=== PATIENT | female | born 1990 | race American Indian/Alaskan Native ===

== ENCOUNTER 2016-04-22 21:35 | Emergency (ER) | payer BC ==
--- NOTE | 2016-04-22 22:23 | Emergency Department Report ---
Chief Complaint: Headache Stated Complaint: HIGH BP/HEADACHE Time Seen by Provider: 04/22/16 22:18 - HPI History of Present Illness: Patient is 26-year-old female who presents to ED complaining of chest pain, headache and dizziness 1 week. Patient states headache began about 2 weeks ago. Patient describes headache as throbbing in nature, generalized, nonradiating, associated with blurry vision bilaterally. Patient also states dizziness associated with pressure. Patient states she is not on any medication. Patient describes chest pain made to the left region, nonradiating, rates it 6 out of 10 intensity. Patient denies fevers/chills/nausea/vomiting/abdominal pain - ROS Review of Systems: As noted in HPI - Exam Vital Signs: Vital Signs 04/22/16 21:41 Temperature 98.2 F Pulse Rate 112 H Respiratory 18 Rate Blood Pressure 155/100 O2 Sat by Pulse 100 Oximetry Physical Exam: GENERAL: Alert and oriented x3, no apparent distress, Normal Gait, atraumatic. HEAD: Head is normocephalic and a-traumatic. EYES: Extra ocular muscles are intact. Pupils are equal, round, and reactive to light and accommodation. NECK: Supple. Non edematous, No carotid bruits. No lymphadenopathy or thyromegaly. LUNGS: Symetrical with respiration, No wheezing, no rales or crackles, CTAB. HEART: S1, S2 present, regular rate and rhythm without murmur, no rubs, no gallops. ABDOMEN: No organomegaly was noted,Positive bowel sounds, soft, and non- distended. . Nontender to palpation on all Quadrants, NO CVA tenderness. SKIN: Warm and dry, No lesions, No ulceration or induration present. MSE screening note: Focused history and physical exam performed. Due to findings the following was ordered: ED Medical Decision Making - Medical Decision Making Chest pain protocol ordered. Vital signs stable mildly elevated blood pressure. Patient is in no respiratory acute distress. To be seen by ED physician and the main side.. ED Disposition for MSE Condition: Stable
[2016-04-22 23:01] LABS: Basophils % (Auto) 0.6 % (0.0-1.8); Eosinophils % (Auto) 0.5 % (0.0-4.3); Hematocrit 35.2 % (30.3-42.9); Hemoglobin 11.4 gm/dl (10.1-14.3); Mean Corpuscular HGB Conc 32 % (30-34); Mean Corpuscular Hemoglobin 24 pg (28-32); Mean Corpuscular Volume 75 fl (79-97); Platelet Count 371 K/mm3 (140-440); Red Blood Count 4.69 M/mm3 (3.65-5.03); Red Cell Distribution Width 16.4 % (13.2-15.2); White Blood Count 8.8 K/mm3 (4.5-11.0)
[2016-04-22 23:28] LABS: BUN/Creatinine Ratio 11.25; Blood Urea Nitrogen 9 mg/dL (7-17); Calcium 8.7 mg/dL (8.4-10.2); Carbon Dioxide 26 mmol/L (22-30); Chloride 101.1 mmol/L (98-107); Glucose 95 mg/dL (65-100); Potassium 4.4 mmol/L (3.6-5.0); Sodium 141 mmol/L (137-145)
[2016-04-22 23:31] LABS: Anion Gap 18 mmol/L
[2016-04-22] MEDS ORDERED: TYLENOL PO ONE (23:40)
[2016-04-22] MEDS ORDERED: TYLENOL ONE (23:45)
[2016-04-23 01:33] LABS: Bacteria,Urine 1+ /HPF (Negative); Bilirubin,Urine NEG (Negative); Blood,Urine SM (Negative); Ketones,Urine NEG (Negative); Leukocyte Esterase,Urine LG (Negative); Mucus,Urine FEW /HPF; Nitrite,Urine NEG (Negative); Protein,Urine <15 mg/dL mg/dL (Negative); Urobilinogen,Urine < 2.0 mg/dL (<2.0)
[2016-04-23] MEDS ORDERED: TORADOL IM ONE (08:39)
--- NOTE | 2016-04-23 08:40 | Emergency Department Report ---
ED General Adult HPI - General Chief complaint: Headache Stated complaint: HIGH BP/HEADACHE Time Seen by Provider: 04/23/16 08:28 Source: patient, RN notes reviewed, old records reviewed Mode of arrival: Ambulatory Limitations: No Limitations - History of Present Illness Initial comments: This is a 26-year-old female, previously unknown to me. Primary care doctor is with [facility]. Patient presents to the ER complaining of headache and fatigue. Headache is left-sided, throbbing, achy in nature. It has been going on for about the past week. It is not sudden or thunderclap in nature. It did not reach maximal intensity within an hour. Patient reports multiple chronic frequent headaches. Patient to this hospital last year for nonspecific headache, and had a negative CT scan of the head. There is no extremity weakness or numbness. There is no ataxia. There is no loss of vision. There is no neck stiffness. There is no recent head or neck trauma, and there is no recent chiropractic manipulation. Patient also describes feeling malaise, fatigue. She reports that she falls asleep frequently during the day, and that she does not get restful sleep. She reports that her partner says that she snores quite a bit during sleep. Patient did complain of mild nonspecific chest discomfort. Chest discomfort is central, to me, the patient states it does not radiate anywhere. There is no vomiting or diaphoresis. There is no severe shortness of breath. Patient does a lot of heavy lifting for work. There is no leg pain. There is no leg swelling. No recent trips greater than 4 hours. No recent hospital admissions. No control tablets. No cocaine use. -: Gradual Location: head, chest Severity scale (0 -10): 9 Quality: aching Consistency: intermittent Improves with: rest Associated Symptoms: chest pain, headaches - Related Data Previous Rx's Medication Instructions Recorded Last Taken Type Hydrochlorothiazide [HCTZ] 25 mg PO QDAY #30 tablet 04/23/16 Unknown Rx Ketorolac [Toradol] 10 mg PO Q6H PRN #20 tablet 04/23/16 Unknown Rx Allergies Allergy/AdvReac Type Severity Reaction Status Date / Time No Known Allergies Allergy Verified 11/27/15 21:43 ED Review of Systems ROS: Stated complaint: HIGH BP/HEADACHE Other details as noted in HPI Constitutional: malaise Eyes: denies: vision change ENT: congestion Respiratory: see HPI Cardiovascular: chest pain Gastrointestinal: denies: abdominal pain, nausea, diarrhea Genitourinary: denies: urgency, dysuria, discharge Musculoskeletal: denies: back pain Neurological: headache Psychiatric: denies: anxiety ED Past Medical Hx - Past Medical History Hx Asthma: Yes - Surgical History Past Surgical History?: No - Social History Smoking Status: Never Smoker Substance Use Type: None - Medications Home Medications: Home Medications Medication Instructions Recorded Confirmed Last Taken Type Hydrochlorothiazide [HCTZ] 25 mg PO QDAY #30 tablet 04/23/16 Unknown Rx Ketorolac [Toradol] 10 mg PO Q6H PRN #20 tablet 04/23/16 Unknown Rx ED Physical Exam - General Limitations: No Limitations General appearance: alert, in no apparent distress - Head Head exam: Present: atraumatic, normocephalic - Eye Eye exam: Present: normal appearance, PERRL, EOMI. Absent: nystagmus - ENT ENT exam: Present: normal exam, normal orophraynx, mucous membranes moist, normal external ear exam - Neck Neck exam: Present: normal inspection, full ROM. Absent: tenderness, meningismus - Respiratory Respiratory exam: Present: normal lung sounds bilaterally, chest wall tenderness. Absent: respiratory distress, wheezes, rales, rhonchi, stridor - Cardiovascular Cardiovascular Exam: Present: regular rate, normal rhythm, normal heart sounds. Absent: bradycardia, tachycardia, irregular rhythm, systolic murmur, diastolic murmur, rubs, gallop - GI/Abdominal GI/Abdominal exam: Present: soft, normal bowel sounds. Absent: distended, tenderness, guarding, rebound, rigid, pulsatile mass - Extremities Exam Extremities exam: Present: normal inspection, full ROM, normal capillary refill. Absent: tenderness, pedal edema, joint swelling, calf tenderness - Back Exam Back exam: Present: normal inspection, full ROM. Absent: tenderness, CVA tenderness (R), CVA tenderness (L), muscle spasm, paraspinal tenderness, vertebral tenderness - Neurological Exam Neurological exam: Present: alert, oriented X3, normal gait (there is no pass pointing. Normal [id number]. Normal gait. Normal tandem gait. Negative pronator drift. Normal [id number].), other (Extraocular movements intact. Tongue midline. No facial droop. Facial sensation intact to light touch in the V1, V2, V3 distribution bilaterally. 5 and 5 strength in 4 extremities.. Sensation is intact to light touch in 4 extremities.). Absent: motor sensory deficit - Psychiatric Psychiatric exam: Present: normal affect, normal mood - Skin Skin exam: Present: warm, dry, intact, normal color. Absent: rash ED Course Vital Signs 04/22/16 04/22/16 04/23/16 21:41 23:50 00:50 Temperature 98.2 F Pulse Rate 112 H Respiratory 18 18 18 Rate Blood Pressure 155/100 Blood Pressure [Right] O2 Sat by Pulse 100 Oximetry 04/23/16 04/23/16 04/23/16 01:45 07:24 09:07 Temperature 98.6 F 97.7 F Pulse Rate 100 H 88 86 Respiratory 18 18 16 Rate Blood Pressure 144/89 Blood Pressure 145/85 157/78 [Right] O2 Sat by Pulse 100 100 99 Oximetry 04/23/16 04/23/16 11:00 11:20 Temperature Pulse Rate 85 Respiratory 17 16 Rate Blood Pressure Blood Pressure 142/79 [Right] O2 Sat by Pulse 100 99 Oximetry - Reevaluation(s) Reevaluation #1: 04/23/16 10:54 Differential differential diagnosis: Sleep deprivation, migraine headache, tension headache, cluster headache, costochondritis, pneumonia, GERD, gastritis , noncompliance with blood pressure medication Assessment and plan: 26-year-old female with numerous nonspecific complaints. Headache clinically sounds benign, has a GCS of 15, NIH score of 0, clinically appears well, playing on a cellular phone, had advanced imaging within the past few months. She is instructed to follow-up with the primary care doctor, and remain compliant with her blood pressure medication. She may have a component of sleep apnea, and may benefit from an outpatient sleep study, but I will defer that to a primary care doctor or sleep specialist to make that determination specifically. Clinically her chest pain is atypical, she is low risk by heart score, low risk by KLEVER score, has no pulmonary embolus or DVT risk factors is low risk by well' s criteria. Clinically does not sound like pneumonia. Patient felt improved after IM Toradol. I will refill her blood pressure medication, and discharged with pain medication. She is suitable for discharge at this time. Return precautions are reviewed. ED Medical Decision Making - Lab Data Result diagrams: 04/22/16 22:38 04/22/16 22:38 Vital Signs 04/22/16 04/22/16 04/23/16 21:41 23:50 00:50 Temperature 98.2 F Pulse Rate 112 H Respiratory 18 18 18 Rate Blood Pressure 155/100 Blood Pressure [Right] O2 Sat by Pulse 100 Oximetry 04/23/16 04/23/16 04/23/16 01:45 07:24 09:07 Temperature 98.6 F 97.7 F Pulse Rate 100 H 88 86 Respiratory 18 18 16 Rate Blood Pressure 144/89 Blood Pressure 145/85 157/78 [Right] O2 Sat by Pulse 100 100 99 Oximetry Labs 04/22/16 04/22/16 04/22/16 22:38 22:38 22:38 WBC 8.8 RBC 4.69 Hgb 11.4 Hct 35.2 MCV 75 L MCH 24 L MCHC 32 RDW 16.4 H Plt Count 371 Lymph % (Auto) 33.9 Gonzales % (Auto) 7.2 Eos % (Auto) 0.5 Baso % (Auto) 0.6 Lymph # 3.0 Gonzales # 0.6 Eos # 0.0 Baso # 0.1 Seg Neutrophils % 57.8 Seg Neutrophils # 5.1 Sodium 141 Potassium 4.4 Chloride 101.1 Carbon Dioxide 26 Anion Gap 18 BUN 9 Creatinine 0.8 Estimated GFR > 60 BUN/Creatinine Ratio 11.25 Glucose 95 Calcium 8.7 Troponin T < 0.010 HCG, Qual Negative Urine Color Urine Turbidity Urine pH Ur Specific Hoffman Urine Protein Urine Glucose (UA) Urine Ketones Urine Blood Urine Nitrite Urine Bilirubin Urine Urobilinogen Ur Leukocyte Esterase Urine WBC (Auto) Urine RBC (Auto) U Epithel Cells (Auto) Urine Bacteria (Auto) Amorphous Crystals Urine Mucus 04/22/16 04/23/16 04/23/16 Unknown 01:27 04:30 WBC RBC Hgb Hct MCV MCH MCHC RDW Plt Count Lymph % (Auto) Gonzales % (Auto) Eos % (Auto) Baso % (Auto) Lymph # Gonzales # Eos # Baso # Seg Neutrophils % Seg Neutrophils # Sodium Potassium Chloride Carbon Dioxide Anion Gap BUN Creatinine Estimated GFR BUN/Creatinine Ratio Glucose Calcium Troponin T < 0.010 < 0.010 HCG, Qual Urine Color Yellow Urine Turbidity Slightly-cloudy Urine pH 6.0 Ur Specific Hoffman 1.012 Urine Protein <15 mg/dl Urine Glucose (UA) Neg Urine Ketones Neg Urine Blood Sm Urine Nitrite Neg Urine Bilirubin Neg Urine Urobilinogen < 2.0 Ur Leukocyte Esterase Lg Urine WBC (Auto) 48.0 H Urine RBC (Auto) 1.0 U Epithel Cells (Auto) 24.0 H Urine Bacteria (Auto) 1+ Amorphous Crystals Few Urine Mucus Few Urinalysis contaminated, patient does not endorse any irritative or obstructive urinary symptoms. - EKG Data 04/23/16 10:56 Normal sinus, 82 bpm, T-wave inversion in lead 3, not consistent with STEMI. Unremarkable EKG. Critical care attestation.: If time is entered above; I have spent that time in minutes in the direct care of this critically ill patient, excluding procedure time. ED Disposition Clinical Impression: Headache, Elevated blood pressure, Chest wall pain Disposition: DISCHARGED TO HOME OR SELFCARE Is pt being admited?: No Does the pt Need Aspirin: No Condition: Stable Instructions: Costochondritis (ED) Additional Instructions: Take the pain medication as directed. Take the blood pressure medication as directed. Follow up with a primary care doctor within the next 10-[address] Karimi is a local primary care doctor. The [facility] is a local medical clinic. It is very important to closely follow-up for outpatient visits for further management of your blood pressure. He may have a diagnosis of hypertension. Long-term complications of hypertension includes stroke, heart attack, disability, , paralysis, permanent loss of quality of life. In addition, you may benefit from an outpatient sleep study, and can follow up with a pulmonology specialist, Dr. Witt within the next month. Return to the ER right away with fevers or chills, chest pain or shortness of breath, nausea or vomiting, inability to tolerate liquid feeds. Prescriptions: Hydrochlorothiazide [HCTZ] 25 mg PO QDAY #30 tablet Ketorolac [Toradol] 10 mg PO Q6H PRN #20 tablet PRN Reason: Pain Referrals: ARIANA RUEDA MD [Primary Care Provider] - 3-5 Days RISA KARIMI MD [Staff Physician] - 3-5 Days [facility] [Provider Group] - 3-5 Days REN WITT MD [Staff Physician] - 3-5 Days Forms: Work/School Release Form(ED)
--- NOTE | 2016-04-23 11:08 | XRay Report ---
ROUTINE CHEST, TWO VIEWS: PA and lateral views demonstrate the heart and mediastinal contour to be of normal size and shape. The lungs are clear and fully expanded and the soft tissues and bony structures are normal. IMPRESSION: Normal study.
[2016-04-23 11:20] VITALS: BP 142/79
== END 2016-04-23 11:18 | disposition home or self-care (01) ==
LOC: ED 21:35
DX: R51 Headache (principal); R07.89 Other chest pain; J45.909 Unspecified asthma, uncomplicated; R03.0 Elevated blood-pressure reading, without diagnosis of hypertension
CPT/HCPCS: 36415; 71020; 80048; 81001; 84484; 84703; 85025; 93005; 93010; 96372; 99285; J1885